=== PATIENT | male | born 1990 | race Two or more races ===

== ENCOUNTER 2021-05-13 12:37 | Emergency (ER) | payer OTHER ==
[~2021-05-13] VITALS: Ht 195.6 cm; Wt 172.4 kg
--- NOTE | 2021-05-13 13:00 | NUR ---
Pt states his rt foot has been hurting because he has been walking alot. No s/s of injury or trauma noted, CSM intact, notified.
--- NOTE | 2021-05-13 13:02 | NUR ---
Dr Gupta at the bedside for MSE.
[2021-05-13] MEDS ORDERED: LORAZEPAM 0.5 MG TABLET PO ONE (13:30)
[2021-05-13 13:32] LABS: HEMATOCRIT 44.9 % (36.7-47.1); MEAN CORPUSCULAR HEMOGLOBIN 31.2 uug (23.8-33.4); MEAN CORPUSCULAR VOLUME 92.5 fL (73.0-96.2); PLATELET COUNT (AUTO) 245 K/uL (152-348)
[2021-05-13] MEDS ORDERED: LORAZEPAM 1 MG TABLET ONE (13:34)
--- NOTE | 2021-05-13 13:38 | NUR ---
Pt has been calm and cooperative with treatment. Pt is eating lunch and watching tv with NAD noted at this time.
[2021-05-13 13:53] LABS: ALANINE AMINOTRANSFERASE 145 U/L (16-63); ALKALINE PHOSPHATASE 92 U/L (50-136); ASPARTATE AMINOTRANSFERASE 91 U/L (15-37); BILIRUBIN,DIRECT 0.6 mg/dL (0.0-0.2); BILIRUBIN,TOTAL 1.4 mg/dL (0.2-1.0); CARBON DIOXIDE 24 mmol/L (21-32); CHLORIDE 99 mmol/L (98-107); CREATININE 0.8 mg/dL (0.6-1.3); GLUCOSE 88 mg/dL (74-106); POTASSIUM 3.7 mmol/L (3.5-5.1); TOTAL PROTEIN, SERUM 7.4 g/dL (6.4-8.2); UREA NITROGEN, BLOOD 7 mg/dL (7-18)
[2021-05-13 14:03] LABS: ACETAMINOPHEN < 2.0 ug/mL (10-30)
[2021-05-13 14:06] LABS: ETHANOL 236 MG/DL (0-0)
[2021-05-13 14:20] LABS: THYROID STIMULATING HORMONE 1.788 mIU/mL (0.358-3.740)
[2021-05-13 14:34] LABS: *AMPHETAMINE, URINE NEGATIVE (NEGATIVE); *CANNABINOID, URINE POSITIVE (NEGATIVE); *COCCAINE, URINE NEGATIVE (NEGATIVE); *OPIATE, URINE NEGATIVE (NEGATIVE); *PHENCYCLIDINE SCREEN,URINE NEGATIVE (NEGATIVE)
--- NOTE | 2021-05-13 14:50 | NUR ---
Pt is medically cleared by Dr Gupta, placed a call to social work specialist Monica Villatoro.
--- NOTE | 2021-05-13 15:59 | NUR ---
[employer] consultation: [employer] consultation requested for Depression, possible SI, inpatient psychiatric hospitalization. This ELECTROFORMER met with the patient bedside in the ED. Patient was brought in by paramedics. Patient reports that he was staying at the [facility], and left there about 3 days ago because he had a court appointment, but never returned back and had been living on the streets. Patient reports hx of mental illness, being diagnosed with Bipolar Disorder II, Major Depression, and ADHD. Patient states he has been prescribed Zoloft and Latuda, but that he has not taken his medications for several days. Patient stated feeling depressed and having thoughts of wanting to harm himself, stating "I'd rather be then alive". Patient reported hx of multiple attempts of trying to hang himself, and stated that he would probably attempt hanging himself again. Patient reported previous psychiatric hospitalizations at [facility], but could not recall the last time. Patient expressed wanting voluntary psychiatric hospitalization again, and was receptive to this ELECTROFORMER making a referral to [facility]. Patient reports daily use of alcohol, drinking about 1.75 liters of vodka a day. Patient stated the last time he drank was this morning. Patient also reported use of meth, last time being about 3 weeks ago. Patient stated he smokes about 6 cigarettes/day. This ELECTROFORMER discussed homeless resources with the patient, and patient was receptive to these resources. This ELECTROFORMER faxed patient's face sheet and clinicals to Get at [facility], fax # [phone]. Patient's alcohol levels will be tested and faxed to [facility] by KRISTIN Harper. The plan is for patient to be transferred to [facility] by ambulance, once accepted for admission. This ELECTROFORMER also provided patient with the homeless resource: a list of year round shelters [facility] [address], ; [facility] [address] [facility], ; and [facility] [address] [facility], ; [facility], ; [facility], [address], [address], ; [facility], [address] [facility], [address], . [facility] [place], [facility], [address] [place] [address], [address], ; [facility], [address] [place] [address], ; [facility], [facility], [address] [place] [address], ; [facility], [address] [place] [address], [address], (men only) The [facility] homeless directory which provides a list of places that individuals can go to throughout the week for hot meals, sack lunches, food pantries, and showers; a list of mental health clinics: [facility] [address] [place] [address], ; [facility] [address] [place] [address], ; [facility] [address] [place] [address], ; a list of medical clinics: [facility] [address] [facility] [address], [place]. [place], ; [facility] [address] [facility], [address], [facility] [address]; [facility] [address] [facility] [address], ; and a list of substance abuse programs: [facility] ; [facility] ; [facility] ; [facility] ; [facility] ; [facility] [phone]; [facility] [phone]. SW also provided patient with information on locations of pharmacies. This ELECTROFORMER informed Dr. Gupta of the discharge plan, and Dr. Gupta was in agreement.
--- NOTE | 2021-05-13 16:41 | NUR ---
Patient is resting comfortably in bed with eyes closed, NAD noted.
--- NOTE | 2021-05-13 20:03 | NUR ---
Patient sleeping on gurny with no distress noted.
--- NOTE | 2021-05-14 02:44 | NUR ---
Called [facility] intake for voluntary admission spoke to Art who requested clinicals to be faxed to .
--- NOTE | 2021-05-14 04:33 | NUR ---
Art from [facility] intake called back with transfer info. Patient will be going to [facility] [place] [facility]. Accepting MD is Dr Dawson.
--- NOTE | 2021-05-14 04:38 | NUR ---
Gave SBAR report to Tom richardson from [facility].
--- NOTE | 2021-05-14 04:40 | NUR ---
Patient c/o anxiety, requesting ativan. Dr Arango made aware.
--- NOTE | 2021-05-14 04:40 | NUR ---
Called [facility] ambulance ETA is 70mins.
[2021-05-14] MEDS ORDERED: LORAZEPAM 2 MG/1 ML VIAL IM ONE (04:45)
[2021-05-14] MEDS ORDERED: LORAZEPAM 2 MG/1 ML VIAL ONE (04:52)
--- NOTE | 2021-05-14 06:24 | NUR ---
Gave SBAR report to [facility] ambulance unit [id number]
--- NOTE | 2021-05-14 06:36 | NUR ---
Transfered to [facility] via [facility] ambulance with no distress noted.
== END 2021-05-14 06:37 ==
LOC: ER 12:37
DX: R45.851 Suicidal ideations (principal); F31.9 Bipolar disorder, unspecified; F10.229 Alcohol dependence with intoxication, unspecified; K70.10 Alcoholic hepatitis without ascites; Y90.8 Blood alcohol level of 240 mg/100 ml or more; Z20.822 Contact with and (suspected) exposure to COVID-19; Z82.49 Family history of ischemic heart disease and other diseases of the circulatory system; Z59.0 Homelessness; F98.8 Other specified behavioral and emotional disorders with onset usually occurring in childhood and adolescence
CPT/HCPCS: 36415 ×2; 80048; 80076; 80299; 80307; 80320 ×3; 84443; 85025; 87426; 96372; 99285; J2060; A4663; G0480